=== PATIENT | female | born 1995 | race African-American/Black ===

== ENCOUNTER 2018-08-24 15:03 | Emergency (ER) | payer OTHER ==
[~2018-08-24] VITALS: Ht 165.1 cm; Wt 61.7 kg
[~2018-08-24 15:03] MED LIST: ONDANSETRON HCL4 M2 PO; PEPCID40 MG PO; PROMETHAZINE12.5 M1 PO
[2018-08-24 15:20] LABS: URINE BILIRUBIN NEGATIVE (Negative); URINE BLOOD 2+ (Negative); URINE CLARITY CLEAR; URINE COLOR YELLOW; URINE GLUCOSE-RANDOM* NEGATIVE (Negative); URINE KETONES NEGATIVE (Negative); URINE LEUKOCYTES-REFLEX 2+ (Negative); URINE NITRITE-REFLEX NEGATIVE (Negative); URINE PROTEIN (DIPSTICK) TRACE (Negative); URINE SPECIFIC GRAVITY 1.015 (1.005-1.035)
[2018-08-24 15:32] LABS: CASTS None Seen /LPF (None Seen); MUCUS 0-3 Light strn/LPF (None Seen); SQUAMOUS 0-3 Few /LPF (0-3); URINE WBC-REFLEX >25 Many /HPF (0-5)
[2018-08-24 15:33] LABS: BACTERIA-REFLEX 1-9 Few /HPF (None Seen); CRYSTALS None Seen /LPF (None Seen); URINE RBC 0-2 Rare /HPF (0-2); WBC CLUMPS Few (None Seen)
[2018-08-24 15:43] LABS: BASOPHILS 0.3 % (0.0-2.0); EOSINOPHILS 0.2 % (0.0-3.0); HEMATOCRIT 41.4 % (37.0-47.0); HEMOGLOBIN 13.7 gm/dL (12.0-15.0); LYMPHOCYTES 14.1 % (24.0-44.0); MCH 27.4 pg (26.0-34.0); MONOCYTES 10.8 % (1.0-8.0); PLATELET COUNT 266 thou/uL (150-400); POLYS 74.6 % (36.0-66.0); RBC 4.99 mil/uL (4.20-5.00); RDW 15.8 % (10.5-14.5); WBC 10.7 thou/uL (4.0-11.0)
[2018-08-24 15:53] LABS: CALCIUM 9.5 mg/dL (8.5-10.1); POTASSIUM 3.5 mmol/L (3.5-5.1)
[2018-08-24] MEDS ORDERED: KEFLEX500 M1 PO (16:32)
[2018-08-24] MEDS ORDERED: PHENAZOPYRIDIN200 M2 PO (16:35)
[2018-08-24 17:10] VITALS: BP 112/59
== END 2018-08-24 16:54 | disposition home or self-care (01) ==
LOC: ER 15:03
PROVIDERS: Physician Assistant
DX: N39.0 Urinary tract infection, site not specified (principal); F17.210 Nicotine dependence, cigarettes, uncomplicated; Z98.890 Other specified postprocedural states